=== PATIENT | male | born 1985 | race Caucasian/White ===

== ENCOUNTER 2020-11-05 22:29 | Emergency (ER) | payer BC ==
[~2020-11-05] VITALS: Ht 177.8 cm; Wt 79.4 kg
[~2020-11-05 22:29] MED LIST: ACET325 PO; OXYC5 PO
[2020-11-05] MEDS ORDERED: CLIN150 PO (23:36)
[2020-11-05] MEDS ORDERED: HYDROCODONE-AC1 EAC7 PO (23:36)
[2020-11-05] MEDS ORDERED: PRINIVIL10 MG PO (23:36)
== END 2020-11-05 23:44 | disposition home or self-care (01) ==
LOC: ER 22:29
DX: K08.89 Other specified disorders of teeth and supporting structures (principal); F17.200 Nicotine dependence, unspecified, uncomplicated; Z88.0 Allergy status to penicillin; Z79.899 Other long term (current) drug therapy
CPT/HCPCS: 64450; 99282-25

== ENCOUNTER 2023-01-11 21:42 | Emergency (ER) | payer OTHER ==
[~2023-01-11] VITALS: Ht 177.8 cm; Wt 81.7 kg
[~2023-01-11 21:42] MED LIST changes: +CLIN150 PO; +ESCI10 PO; +HYDR1TAB94 PO; +HYDROCODONE-AC1 EAC7 PO; +LISI20 PO; +PAIN RELIEF1 EACH TOP; +PRINIVIL10 MG PO
[2023-01-11 22:11] LABS: BASOPHILS ABSOLUTE AUTO 0.05 K/mm3 (0.00-0.23); BASOPHILS PERCENT AUTO 1 % (0-2); EOSINOPHILS ABSOLUTE AUTO 0.12 K/mm3 (0.00-0.68); EOSINOPHILS PERCENT AUTO 2 % (0-6); Hematocrit 48.1 % (37.0-53.0); Hemoglobin 17.4 g/dL (13.5-17.5); IMMATURE GRAN ABSOLUTE AUTO 0.08 K/mm3 (0.00-0.10); IMMATURE GRAN PERCENT AUTO 1 % (0-1); LYMPHOCYTES ABSOLUTE AUTO 3.08 K/mm3 (0.84-5.20); LYMPHOCYTES PERCENT AUTO 37 % (21-46); MONOCYTES ABSOLUTE AUTO 0.62 K/mm3 (0.16-1.47); MONOCYTES PERCENT AUTO 8 % (4-13); Mean Corpuscular HGB Conc 36.2 g/dL (31.5-36.5); Mean Corpuscular Volume 86 fL (80-100); Mean Platelet Volume 9.2 fL (9.1-12.4); NEUTROPHILS ABSOLUTE AUTO 4.32 K/mm3 (1.96-9.15); NEUTROPHILS PERCENT AUTO 52 % (41-73); Platelet Count 184 K/mm3 (150-400); RDW Coefficient Variation 11.9 % (11.7-14.2); Red Blood Cell Count 5.61 M/mm3 (4.30-5.90); White Blood Cell Count 8.27 K/mm3 (4.00-11.30)
[2023-01-11 22:28] LABS: Albumin/Globulin Ratio 1.2 (0.8-1.8); Bilirubin, Total 0.5 mg/dL (0.1-1.0); Bun/Creatinine Ratio 8.9 (12.0-20.0); Calcium, Blood 9.5 mg/dL (8.5-10.1); Creatinine, Blood 0.9 mg/dL (0.60-1.20); Globulin, Blood 3.2 g/dL (2.2-4.0); Potassium, Blood 3.8 mmol/L (3.5-5.5); Total Protein, Blood 7.2 g/dL (6.4-8.2)
== END 2023-01-12 00:28 | disposition home or self-care (01) ==
LOC: ER 21:42
PROVIDERS: Student in an Organized Health Care Education/Training Program
DX: I10 Essential (primary) hypertension (principal); R07.89 Other chest pain; Z88.0 Allergy status to penicillin; Z79.899 Other long term (current) drug therapy
CPT/HCPCS: 36415; 80053; 84484; 85025; 93005; 93010; 99283-25

== ENCOUNTER 2025-09-01 22:41 | Emergency (ER) | payer OTHER ==
[~2025-09-01] VITALS: Ht 177.8 cm; Wt 81.7 kg
[2025-09-01 22:23] VITALS: BP 158/110
[~2025-09-01 22:41] MED LIST changes: +CLIN300 PO; +FAMO20 PO; +IBU600 M1 PO; +Ketorolac Tromethamine 30mg Vial IM ONE
== END 2025-09-01 23:40 | disposition home or self-care (01) ==
LOC: ER 22:41
DX: K04.7 Periapical abscess without sinus (principal); K06.8 Other specified disorders of gingiva and edentulous alveolar ridge; F17.220 Nicotine dependence, chewing tobacco, uncomplicated; Z79.899 Other long term (current) drug therapy; Z88.0 Allergy status to penicillin
CPT/HCPCS: 96372; 99282-25; A9270; J1885

== ENCOUNTER 2025-09-02 20:45 | Emergency (ER) | payer OTHER ==
[~2025-09-02] VITALS: Ht 167.6 cm; Wt 68.0 kg
[~2025-09-02 20:45] MED LIST changes: -Ketorolac Tromethamine 30mg Vial IM ONE
[2025-09-02 21:28] LABS: BASOPHILS ABSOLUTE AUTO 0.02 K/mm3 (0.00-0.23); BASOPHILS PERCENT AUTO 0 % (0-2); EOSINOPHILS ABSOLUTE AUTO 0.19 K/mm3 (0.00-0.68); EOSINOPHILS PERCENT AUTO 3 % (0-6); Hematocrit 43.1 % (37.0-53.0); Hemoglobin 15.5 g/dL (13.5-17.5); IMMATURE GRAN ABSOLUTE AUTO 0.02 K/mm3 (0.00-0.10); IMMATURE GRAN PERCENT AUTO 0 % (0-1); LYMPHOCYTES ABSOLUTE AUTO 1.89 K/mm3 (0.84-5.20); LYMPHOCYTES PERCENT AUTO 24 % (21-46); MONOCYTES ABSOLUTE AUTO 0.48 K/mm3 (0.16-1.47); MONOCYTES PERCENT AUTO 6 % (4-13); Mean Corpuscular HGB Conc 36.0 g/dL (31.5-36.5); Mean Corpuscular Volume 87 fL (80-100); NEUTROPHILS ABSOLUTE AUTO 5.15 K/mm3 (1.96-9.15); NEUTROPHILS PERCENT AUTO 66 % (41-73); NRBC ABSOLUTE 0.00 K/mm3 (0.00-0.02); NRBC Auto 0.0 /100 WBC (0.0-0.2); Platelet Count 174 K/mm3 (150-400); RDW Coefficient Variation 11.5 % (11.7-14.2); RDW Standard Deviation 36.4 fL (35.1-46.3)
[2025-09-02] MEDS ORDERED: Ketorolac Tromethamine 15mg Vial IV ONE (21:50)
[2025-09-02 21:53] LABS: Alanine Aminotransfer (ALT/SGP 21.0 U/L (12-78); Albumin, Blood 3.8 g/dL (3.4-5.0); Albumin/Globulin Ratio 1.4 (0.8-1.8); Anion Gap 8.0 mmol/L (3-11); Aspartate Aminotrans (AST/SGOT 19.0 U/L (12-37); Bilirubin, Total 0.6 mg/dL (0.1-1.0); Blood Urea Nitrogen 15.0 mg/dL (8-24); CO2, Blood 26.0 mmol/L (21-32); Calcium, Blood 8.6 mg/dL (8.5-10.1); Chloride, Blood 106.0 mmol/L (98-108); Creatinine, Blood 1.01 mg/dL (0.60-1.20); Globulin, Blood 2.7 g/dL (2.2-4.0); Glucose, Blood 124.0 mg/dL (70-99); Potassium, Blood 3.7 mmol/L (3.5-5.5); Sodium, Blood 136.0 mmol/L (136-145); Total Protein, Blood 6.5 g/dL (6.4-8.2)
[2025-09-03 00:15] VITALS: BP 173/108
[2025-09-03] MEDS ORDERED: OxyCODONE 5 mg/Acetamin 325 mg TABLET PO ONE (00:15)
[2025-09-03] MEDS ORDERED: RX Prepack 6 Tabs Oxycodone 5mg UD ONE (00:15)
[2025-09-03] MEDS ORDERED: RX Prepack 2 Tabs Ondansetron ODT 4MG UD ONE (00:15)
[2025-09-03] MEDS ORDERED: Percocet 5-3251 EACH PO (00:19)
[2025-09-03] MEDS ORDERED: CLIN300 PO (00:19)
[2025-09-03] MEDS ORDERED: ONDA4ODT MM (00:19)
== END 2025-09-03 00:54 | disposition home or self-care (01) ==
LOC: ER 20:45
PROVIDERS: Physician Assistant
DX: I10 Essential (primary) hypertension (principal); K04.7 Periapical abscess without sinus; R00.2 Palpitations; Z88.0 Allergy status to penicillin
CPT/HCPCS: 71046; 80053; 84484; 85025; 93005; 93010; 96374; 99284-25; A9270; J1885

== ENCOUNTER 2025-09-05 02:19 | Emergency (ER) | payer OTHER ==
[~2025-09-05] VITALS: Ht 177.8 cm; Wt 81.7 kg
[~2025-09-05 02:19] MED LIST changes: +ONDA4ODT MM; +Percocet 5-3251 EACH PO
[2025-09-05 02:32] VITALS: BP 151/109
[2025-09-05] MEDS ORDERED: RX Prepack 6 Tabs Oxycodone 5mg UD ONE (02:55)
[2025-09-05] MEDS ORDERED: Ketorolac Tromethamine 15mg Vial IV ONE (02:55)
== END 2025-09-05 03:14 | disposition home or self-care (01) ==
LOC: ER 02:19
DX: K04.7 Periapical abscess without sinus (principal); I10 Essential (primary) hypertension; Z88.0 Allergy status to penicillin; Z79.899 Other long term (current) drug therapy
CPT/HCPCS: 96374; 99283-25; A9270; J1885